=== PATIENT | male | born 1990 | race Caucasian/White ===

== ENCOUNTER 2018-10-10 07:00 | Emergency (ER) | payer BC ==
[~2018-10-10] VITALS: Ht 180.3 cm; Wt 49.9 kg
[~2018-10-10 07:00] MED LIST: TRAMADOL HCL50 MG PO
[2018-10-10] MEDS ORDERED: BACLOFEN10 MG PO (08:43)
[2018-10-10] MEDS ORDERED: KETOROLAC TROME10 MG PO (08:43)
== END 2018-10-10 08:55 | disposition home or self-care (01) ==
LOC: ED 07:00
DX: S16.1XXA Strain of muscle, fascia and tendon at neck level, initial encounter (principal); W01.198A Fall on same level from slipping, tripping and stumbling with subsequent striking against other object, initial encounter; Z87.891 Personal history of nicotine dependence
CPT/HCPCS: 70450; 72125; 99284-25

== ENCOUNTER 2020-01-28 13:50 | Emergency (ER) | payer OTHER, BC ==
[~2020-01-28] VITALS: Ht 180.3 cm; Wt 54.4 kg
[~2020-01-28 13:50] MED LIST changes: +BACLOFEN10 MG PO; +KETOROLAC TROME10 MG PO
[2020-01-28] MEDS ORDERED: LIDODERM1 EACH TD (14:11)
[2020-01-28] MEDS ORDERED: NAPROSYN500 MG PO (14:11)
== END 2020-01-28 14:45 | disposition home or self-care (01) ==
LOC: ED 13:50
DX: S29.012A Strain of muscle and tendon of back wall of thorax, initial encounter (principal); Z87.891 Personal history of nicotine dependence; X50.0XXA Overexertion from strenuous movement or load, initial encounter
CPT/HCPCS: 96372; 99283; J1885

== ENCOUNTER 2025-01-13 20:43 | Emergency (ER) | payer OTHER ==
[~2025-01-13] VITALS: Ht 182.9 cm; Wt 57.7 kg
[~2025-01-13 20:43] MED LIST changes: +LIDODERM1 EACH TD; +NAPROSYN500 MG PO
[2025-01-13 23:05] VITALS: BP 105/75
== END 2025-01-13 23:11 | disposition home or self-care (01) ==
LOC: ED 20:43
DX: J06.9 Acute upper respiratory infection, unspecified (principal); Z79.899 Other long term (current) drug therapy; Z87.891 Personal history of nicotine dependence
CPT/HCPCS: 87651; 99283

== ENCOUNTER 2025-04-21 11:04 | Emergency (ER) | payer OTHER ==
[~2025-04-21] VITALS: Ht 182.9 cm; Wt 55.5 kg
[2025-04-21] MEDS ORDERED: IBUPROFEN 600 MG TAB PO ONE (12:15)
[2025-04-21] MEDS ORDERED: HYDROCODONE/ACETA 7.5/325 TAB PO ONE (12:15)
[2025-04-21] MEDS ORDERED: CEPHALEXIN500 M1 PO (12:17)
[2025-04-21] MEDS ORDERED: HYDROCODON-ACE1 EA11 PO (12:17)
[2025-04-21 14:19] VITALS: BP 132/89
== END 2025-04-21 14:20 | disposition home or self-care (01) ==
LOC: ED 11:04
DX: S92.421B Displaced fracture of distal phalanx of right great toe, initial encounter for open fracture (principal); W20.8XXA Other cause of strike by thrown, projected or falling object, initial encounter; Z87.891 Personal history of nicotine dependence
CPT/HCPCS: 11730; 73630; 99283; A9270